=== PATIENT | male | born 1985 | race Two or more races ===

== ENCOUNTER 2017-11-15 23:10 | Emergency (ER) | payer SELFPAY ==
[~2017-11-15] VITALS: Ht 172.7 cm; Wt 97.5 kg
--- NOTE | 2017-11-15 23:20 | NUR ---
PATIENT WALKED INTO ER WITH STEADY GAIT C/O N/V X2 DAYS DUE TO ETOH WITHDRAWAL. PATIENT UPON ARRIVAL A/OX4,SPEAKING WITH CLEAR SPEECH.
--- NOTE | 2017-11-15 23:30 | NUR ---
DR HAYNES INTO EVAL PATIENT
[2017-11-15] MEDS ORDERED: IV NORMAL SALINE 1000 ML BAG IV ONE (23:45)
[2017-11-15] MEDS ORDERED: LORAZEPAM 2 MG/1 ML VIAL IV ONE (23:45)
[2017-11-15] MEDS ORDERED: ONDANSETRON 4 MG/2 ML VIAL IV ONE (23:45)
[2017-11-15] MEDS ORDERED: ONDANSETRON 4 MG/2 ML VIAL ONE (23:46)
[2017-11-15] MEDS ORDERED: LORAZEPAM 2 MG/1 ML VIAL ONE (23:47)
[2017-11-15 23:50] LABS: BASOPHILS # (AUTO) 0.1 K/uL (0.0-8.0); BASOPHILS % (AUTO) 0.5 % (0.0-2.0); EOSINOPHILS % (AUTO) 0.1 % (0.0-7.0); HEMATOCRIT 47.1 % (36.7-47.1); HEMOGLOBIN 16.1 g/dL (12.5-16.3); LYMPHOCYTES # (AUTO) 2.2 K/uL (20.0-40.0); LYMPHOCYTES % (AUTO) 15.4 % (20.5-51.5); MEAN CORPUSCULAR HEMOGLOBIN 29.4 uug (23.8-33.4); MEAN CORPUSCULAR HGB CONC 34 g/dL (32.5-36.3); MEAN CORPUSCULAR VOLUME 86.1 fL (73.0-96.2); MONOCYTES # (AUTO) 0.9 K/uL (2.0-10.0); MONOCYTES % (AUTO) 6.5 % (0.0-11.0); NEUTROPHILS # (AUTO) 11.1 K/uL (1.8-8.9); NEUTROPHILS % (AUTO) 77.5 % (38.5-71.5); PLATELET COUNT (AUTO) 427 K/uL (152-348); RED BLOOD CELL COUNT(AUTO) 5.47 MIL/uL (4.06-5.63); WHITE BLOOD COUNT (AUTO) 14.4 K/uL (3.6-10.2)
[2017-11-16 00:07] LABS: ETHANOL < 3 MG/DL (0-0)
[2017-11-16 00:08] LABS: CREATININE 1.5 mg/dL (0.6-1.3); POTASSIUM 3.7 mmol/L (3.5-5.1)
[2017-11-16 00:13] LABS: BILIRUBIN,DIRECT 0.1 mg/dL (0.0-0.2); BILIRUBIN,TOTAL 0.3 mg/dL (0.2-1.0); TOTAL PROTEIN, SERUM 8.7 g/dL (6.4-8.2)
--- NOTE | 2017-11-16 00:46 | NUR ---
IV removed. Catheter intact and site benign. Pressure and 4x4 gauze applied to site. No bleeding noted.
[2017-11-16 00:50] VITALS: BP 138/88
--- NOTE | 2017-11-16 00:57 | NUR ---
Patient discharged to home in stable conditon. Written and verbal after care instructions given. Patient verbalizes understanding of instructions. WALKED OUT OF ER WITH NO DISTRESS NOTED. PATIENT WAS TOOK UBER HOME
== END 2017-11-16 00:56 | disposition home or self-care (01) ==
LOC: ER 23:13
DX: F10.239 Alcohol dependence with withdrawal, unspecified (principal)
CPT/HCPCS: 36415; 80048; 80076; 83690; 85025; 96361; 96374; 96375; 99284; A4663; G0480; J2060; J2405; J7030

== ENCOUNTER 2017-11-26 06:54 | Emergency (ER) | payer SELFPAY ==
[~2017-11-26] VITALS: Ht 172.7 cm; Wt 95.3 kg
[2017-11-26] MEDS ORDERED: PANTOPRAZOLE SODIUM 40 MG VIAL ONE (07:21)
[2017-11-26] MEDS ORDERED: ONDANSETRON 4 MG/2 ML VIAL ONE (07:21)
[2017-11-26] MEDS ORDERED: LORAZEPAM 2 MG/1 ML VIAL ONE ×2 (07:22→08:45)
[2017-11-26 07:27] LABS: BASOPHILS # (AUTO) 0.1 K/uL (0.0-8.0); BASOPHILS % (AUTO) 1.1 % (0.0-2.0); EOSINOPHILS # (AUTO) 0.2 K/uL (0.0-0.7); EOSINOPHILS % (AUTO) 1.7 % (0.0-7.0); HEMATOCRIT 47.8 % (36.7-47.1); LYMPHOCYTES # (AUTO) 4.2 K/uL (20.0-40.0); LYMPHOCYTES % (AUTO) 39.9 % (20.5-51.5); MEAN CORPUSCULAR HEMOGLOBIN 30.9 uug (23.8-33.4); MEAN CORPUSCULAR HGB CONC 36 g/dL (32.5-36.3); MEAN CORPUSCULAR VOLUME 86.5 fL (73.0-96.2); MONOCYTES # (AUTO) 0.9 K/uL (2.0-10.0); MONOCYTES % (AUTO) 8.1 % (0.0-11.0); NEUTROPHILS # (AUTO) 5.2 K/uL (1.8-8.9); NEUTROPHILS % (AUTO) 49.2 % (38.5-71.5); PLATELET COUNT (AUTO) 369 K/uL (152-348); RED BLOOD CELL COUNT(AUTO) 5.53 MIL/uL (4.06-5.63); WHITE BLOOD COUNT (AUTO) 10.6 K/uL (3.6-10.2)
[2017-11-26] MEDS ORDERED: PANTOPRAZOLE SODIUM 40 MG VIAL IV ONE (07:30)
[2017-11-26] MEDS ORDERED: LORAZEPAM 2 MG/1 ML VIAL IV ONE ×2 (07:30→08:30)
[2017-11-26] MEDS ORDERED: ONDANSETRON 4 MG/2 ML VIAL IV ONE (07:30)
[2017-11-26] MEDS ORDERED: IV NORMAL SALINE 1000 ML BAG IV ONE ×2 (07:30→08:30)
[2017-11-26 07:32] LABS: HEMOGLOBIN 16.5 g/dL (12.5-16.3)
[2017-11-26 07:33] LABS: CREATININE 1.2 mg/dL (0.6-1.3); POTASSIUM 3.2 mmol/L (3.5-5.1)
[2017-11-26 07:40] LABS: BILIRUBIN,DIRECT 0.1 mg/dL (0.0-0.2); BILIRUBIN,TOTAL 0.3 mg/dL (0.2-1.0); TOTAL PROTEIN, SERUM 8.2 g/dL (6.4-8.2)
--- NOTE | 2017-11-26 07:57 | NUR ---
Patient is resting comfortably in bed with eyes closed. No "shakes" or tremors seen. PATIENT IS PAIN FREE AT THIS TIME.
[2017-11-26] MEDS ORDERED: POTASSIUM CHLORIDE 20 MEQ TAB.PRT.SR PO ONE (08:30)
[2017-11-26] MEDS ORDERED: POTASSIUM CHLORIDE 20 MEQ TAB.PRT.SR ONE (08:45)
--- NOTE | 2017-11-26 09:26 | NUR ---
Patient is sleeping comfortably, easily arousable, for discharge per Dr Galeas.
--- NOTE | 2017-11-26 09:31 | NUR ---
IV removed. Catheter intact and site benign. Pressure and 4x4 gauze applied to site. No bleeding noted. Patient discharged to home in stable conditon. Written and verbal after care instructions given to patient. Patient verbalizes understanding of instructions.
== END 2017-11-26 09:31 | disposition home or self-care (01) ==
LOC: ER 06:56
DX: F10.239 Alcohol dependence with withdrawal, unspecified (principal); E87.6 Hypokalemia
CPT/HCPCS: 36415; 83690; 85025; A4663; C9113; G0480; J2060; J2405; J7030

== ENCOUNTER 2017-12-28 07:15 | Emergency (ER) | payer SELFPAY ==
[~2017-12-28] VITALS: Ht 172.7 cm; Wt 97.5 kg
--- NOTE | 2017-12-28 07:55 | NUR ---
DR RON AT THE BEDSIDE FOR MSE.
[2017-12-28] MEDS ORDERED: IV NORMAL SALINE 1000 ML BAG IV ONE (08:00)
[2017-12-28] MEDS ORDERED: LORAZEPAM 2 MG/1 ML VIAL IV ONE ×2 (08:00→09:00)
[2017-12-28] MEDS ORDERED: ONDANSETRON IV *ER 4 MG/2 ML VIAL IV ONE ×2 (08:00→10:30)
[2017-12-28] MEDS ORDERED: ONDANSETRON 4 MG/2 ML VIAL ONE ×2 (08:12→10:19)
[2017-12-28] MEDS ORDERED: LORAZEPAM 2 MG/1 ML VIAL ONE ×2 (08:13→08:57)
[2017-12-28 08:23] LABS: BASOPHILS # (AUTO) 0.1 K/uL (0.0-8.0); BASOPHILS % (AUTO) 0.8 % (0.0-2.0); EOSINOPHILS # (AUTO) 0.1 K/uL (0.0-0.7); EOSINOPHILS % (AUTO) 0.9 % (0.0-7.0); HEMOGLOBIN 14.5 g/dL (12.5-16.3); LYMPHOCYTES # (AUTO) 1.9 K/uL (20.0-40.0); LYMPHOCYTES % (AUTO) 16.9 % (20.5-51.5); MEAN CORPUSCULAR HEMOGLOBIN 29.6 uug (23.8-33.4); MEAN CORPUSCULAR HGB CONC 34 g/dL (32.5-36.3); MEAN CORPUSCULAR VOLUME 87.8 fL (73.0-96.2); MONOCYTES # (AUTO) 0.8 K/uL (2.0-10.0); MONOCYTES % (AUTO) 7.2 % (0.0-11.0); NEUTROPHILS # (AUTO) 8.3 K/uL (1.8-8.9); NEUTROPHILS % (AUTO) 74.2 % (38.5-71.5); PLATELET COUNT (AUTO) 450 K/uL (152-348); RED BLOOD CELL COUNT(AUTO) 4.89 MIL/uL (4.06-5.63); WHITE BLOOD COUNT (AUTO) 11.2 K/uL (3.6-10.2)
[2017-12-28 08:32] LABS: CREATININE 0.9 mg/dL (0.6-1.3); POTASSIUM 3.8 mmol/L (3.5-5.1)
[2017-12-28 08:38] LABS: BILIRUBIN,DIRECT 0.1 mg/dL (0.0-0.2); BILIRUBIN,TOTAL 0.4 mg/dL (0.2-1.0); TOTAL PROTEIN, SERUM 7.4 g/dL (6.4-8.2)
[2017-12-28] MEDS ORDERED: DIAZEPAM 2 MG TABLET PO ONE (10:30)
[2017-12-28] MEDS ORDERED: DIAZEPAM 5 MG TABLET ONE (10:31)
[2017-12-28 10:35] VITALS: BP 142/80
--- NOTE | 2017-12-28 10:36 | NUR ---
IV removed. Catheter intact and site benign. Pressure and 4x4 gauze applied to site. No bleeding noted.
--- NOTE | 2017-12-28 10:37 | NUR ---
Patient discharged to home in stable conditon. Written and verbal after care instructions given. Patient verbalizes understanding of instructions.
== END 2017-12-28 10:37 | disposition home or self-care (01) ==
LOC: ER 07:15
DX: F10.239 Alcohol dependence with withdrawal, unspecified (principal); F10.10 Alcohol abuse, uncomplicated; R11.2 Nausea with vomiting, unspecified
CPT/HCPCS: 36415; 83690; 85025; A4663; J2060; J2405; J7030

== ENCOUNTER 2018-10-24 09:10 | Emergency (ER) | payer SELFPAY ==
[~2018-10-24] VITALS: Ht 172.7 cm; Wt 90.7 kg
[2018-10-24 09:32] LABS: BASOPHILS # (AUTO) 0.1 K/uL (0.0-8.0); BASOPHILS % (AUTO) 0.8 % (0.0-2.0); EOSINOPHILS # (AUTO) 0.1 K/uL (0.0-0.7); EOSINOPHILS % (AUTO) 0.6 % (0.0-7.0); HEMATOCRIT 44.5 % (36.7-47.1); HEMOGLOBIN 15.1 g/dL (12.5-16.3); LYMPHOCYTES # (AUTO) 1.4 K/uL (20.0-40.0); LYMPHOCYTES % (AUTO) 14.7 % (20.5-51.5); MEAN CORPUSCULAR HEMOGLOBIN 30.7 uug (23.8-33.4); MEAN CORPUSCULAR HGB CONC 34 g/dL (32.5-36.3); MEAN CORPUSCULAR VOLUME 90.5 fL (73.0-96.2); MONOCYTES # (AUTO) 0.9 K/uL (2.0-10.0); MONOCYTES % (AUTO) 10.2 % (0.0-11.0); NEUTROPHILS # (AUTO) 6.9 K/uL (1.8-8.9); NEUTROPHILS % (AUTO) 73.7 % (38.5-71.5); PLATELET COUNT (AUTO) 322 K/uL (152-348); RED BLOOD CELL COUNT(AUTO) 4.91 MIL/uL (4.06-5.63); WHITE BLOOD COUNT (AUTO) 9.4 K/uL (3.6-10.2)
[2018-10-24] MEDS ORDERED: ONDANSETRON 4 MG/2 ML VIAL ONE (09:33)
[2018-10-24] MEDS ORDERED: LORAZEPAM 2 MG/1 ML VIAL ONE ×2 (09:33→11:04)
[2018-10-24 09:37] LABS: POTASSIUM 4.4 mmol/L (3.5-5.1)
[2018-10-24] MEDS: ONDANSETRON 4 MG/2 ML VIAL IV ONE (09:42)
[2018-10-24] MEDS: LORAZEPAM 2 MG/1 ML VIAL IV ONE ×2 (09:42→11:04)
[2018-10-24] MEDS: IV NORMAL SALINE 1000 ML BAG IV ONE (09:42)
[2018-10-24 09:43] LABS: BILIRUBIN,DIRECT 0.1 mg/dL (0.0-0.2); BILIRUBIN,TOTAL 0.6 mg/dL (0.2-1.0); TOTAL PROTEIN, SERUM 8.2 g/dL (6.4-8.2)
--- NOTE | 2018-10-24 09:57 | NUR ---
Patient is resting comfortably on gurney with eyes closed, no tremors seen, calm & cooperative when awake.
--- NOTE | 2018-10-24 10:45 | NUR ---
PO challenge started.
--- NOTE | 2018-10-24 10:55 | NUR ---
Patient feels some anxiety & generalized tremors, MD notified. No actual tremors seen in ER.
--- NOTE | 2018-10-24 11:49 | NUR ---
Copies of the diagnostic tests' results provided to patient per patient's request.
--- NOTE | 2018-10-24 11:50 | NUR ---
Patient says that he feels better after the 2nd dose of IV Ativan. Patient's cousin is here to pick the patient up & as his ride. IV removed. Catheter intact and site benign. Pressure and 4x4 gauze applied to site. No bleeding noted. Patient discharged to home in stable conditon. Written and verbal after care instructions given to patient and family. Patient and family verbalized understanding & compliance of instructions. Patient left ER with slow steady gait.
== END 2018-10-24 11:52 | disposition home or self-care (01) ==
LOC: ER 09:10
DX: F10.10 Alcohol abuse, uncomplicated (principal); R11.10 Vomiting, unspecified; Y90.9 Presence of alcohol in blood, level not specified
CPT/HCPCS: 36415; 80048; 80076; 83690; 85025; 96374; 96375; 96376; 99283; J2060 ×2; J2405 ×2; A4663; J7030

== ENCOUNTER 2019-02-10 06:05 | Emergency (ER) | payer MEDICAID ==
[~2019-02-10] VITALS: Ht 172.7 cm; Wt 90.7 kg
--- NOTE | 2019-02-10 06:14 | NUR ---
MD AT BEDSIDE FOR HX AND PHYSICAL
[2019-02-10] MEDS ORDERED: LORAZEPAM 2 MG/1 ML VIAL IM ONE (06:15)
[2019-02-10] MEDS ORDERED: ONDANSETRON ODT 4 MG TAB.RAPDIS SL ONE (06:15)
--- NOTE | 2019-02-10 06:20 | NUR ---
ABLE TO TOLERATE ATLEAST 50ML OF ORANGE JUICE DENIES EMESIS DENIES PAIN
[2019-02-10] MEDS ORDERED: LORAZEPAM 2 MG/1 ML VIAL ONE (06:21)
[2019-02-10] MEDS ORDERED: CHLORDIAZEPOXIDE HCL 25 MG CAPSULE ONE (06:25)
[2019-02-10] MEDS ORDERED: ONDANSETRON ODT 4 MG TAB.RAPDIS ONE (06:26)
[2019-02-10] MEDS ORDERED: CHLORDIAZEPOXIDE HCL 25 MG CAPSULE PO ONE (06:30)
--- NOTE | 2019-02-10 06:30 | NUR ---
Patient discharged to home in stable conditon. Written and verbal after care instructions given. Patient verbalizes understanding of instructions. AMBULATORY WITH STABLE GAIT. ALL BELONGINGS WITH PT INSTRUCTED NOT TO DRIVE. PT VERBALIZED WILL TAKE UBER
[2019-02-10 06:31] VITALS: BP 155/70
== END 2019-02-10 06:32 | disposition home or self-care (01) ==
LOC: ER 06:07
DX: F10.239 Alcohol dependence with withdrawal, unspecified (principal); Y90.9 Presence of alcohol in blood, level not specified
CPT/HCPCS: 82962; 96372; 99283; J2060; A4663; Q0162

== ENCOUNTER 2020-11-05 07:25 | Emergency (ER) | payer MEDICAID, OTHER ==
[~2020-11-05] VITALS: Ht 172.7 cm; Wt 90.7 kg
--- NOTE | 2020-11-05 07:44 | NUR ---
Pt is in room #1b. Dr Mistry evaluated the pt.
[2020-11-05] MEDS ORDERED: KETOROLAC TROMETHAMINE 30 MG INJ IM ONE (08:00)
[2020-11-05] MEDS ORDERED: KETOROLAC TROMETHAMINE 30 MG INJ ONE (08:08)
[2020-11-05 08:29] LABS: *BILIRUBIN,URIN NEGATIVE (NEGATIVE); *BLOOD, URINE NEGATIVE (NEGATIVE); *CLARITY,URINE CLEAR (CLEAR); *COLOR,URINE YELLOW (YELLOW); *KETONES,URINE NEGATIVE (NEGATIVE); *UROBILINOGEN,URINE 0.2 E.U./dl (NORMAL); LEUKOCYTE ESTERASE ,URINE NEGATIVE (NEGATIVE); NITRITE, URINE NEGATIVE (NEGATIVE); PH,URINE 5.5 (5.0-8.0); UGLUCOSE NEGATIVE (NEGATIVE)
[2020-11-05] MEDS ORDERED: IV NORMAL SALINE 1000 ML BAG IV ONE (08:45)
[2020-11-05] MEDS ORDERED: ONDANSETRON 4 MG/2 ML VIAL IV ONE (08:45)
[2020-11-05] MEDS ORDERED: MORPHINE SULFATE 2 MG/1 ML DISP.SYRIN IV ONE (08:45)
[2020-11-05] MEDS ORDERED: IOHEXOL 300MG/ML 100 ML INFUS..BTL ONE (08:51)
[2020-11-05] MEDS ORDERED: IV NORMAL SALINE 250 ML IV ONE (08:51)
[2020-11-05 08:56] LABS: BASOPHILS # (AUTO) 0.1 K/uL (0.0-8.0); BASOPHILS % (AUTO) 0.4 % (0.0-2.0); EOSINOPHILS # (AUTO) 0.4 K/uL (0.0-0.7); EOSINOPHILS % (AUTO) 2.4 % (0.0-7.0); HEMATOCRIT 46.7 % (36.7-47.1); HEMOGLOBIN 15.4 g/dL (12.5-16.3); LYMPHOCYTES # (AUTO) 1.5 K/uL (20.0-40.0); LYMPHOCYTES % (AUTO) 10.5 % (20.5-51.5); MEAN CORPUSCULAR HGB CONC 33 g/dL (32.5-36.3); MEAN CORPUSCULAR VOLUME 90.7 fL (73.0-96.2); MONOCYTES # (AUTO) 0.9 K/uL (2.0-10.0); MONOCYTES % (AUTO) 6.4 % (0.0-11.0); NEUTROPHILS # (AUTO) 11.7 K/uL (1.8-8.9); NEUTROPHILS % (AUTO) 80.3 % (38.5-71.5); PLATELET COUNT (AUTO) 364 K/uL (152-348); RED BLOOD CELL COUNT(AUTO) 5.14 MIL/uL (4.06-5.63); WHITE BLOOD COUNT (AUTO) 14.6 K/uL (3.6-10.2)
[2020-11-05] MEDS ORDERED: ONDANSETRON 4 MG/2 ML VIAL ONE (08:56)
[2020-11-05] MEDS ORDERED: MORPHINE SULFATE 4 MG/1 ML DISP.SYRIN ONE (08:56)
[2020-11-05 08:59] LABS: CREATININE 0.9 mg/dL (0.6-1.3); POTASSIUM 3.6 mmol/L (3.5-5.1)
[2020-11-05] MEDS ORDERED: HYDROMORPHONE 1 MG/1 ML DISP.SYRIN IV ONE (09:45)
[2020-11-05] MEDS ORDERED: HYDROMORPHONE 1 MG/1 ML DISP.SYRIN ONE (09:46)
[2020-11-05] MEDS ORDERED: LIDOCAINE 5% PATCH TD ONE ×2 (10:00→10:07)
[2020-11-05] MEDS ORDERED: LIDO30AD10 TD (10:01)
[2020-11-05] MEDS ORDERED: IBUP-1958 PO (10:01)
[2020-11-05] MEDS ORDERED: OXYC-121 PO ×2 (10:01→10:18)
--- NOTE | 2020-11-05 10:27 | NUR ---
PT WAS D/C'd TO HOME. D/C INSTRUCTIONS GIVEN TO THE PT BY DR MAN. PT VERBALISED FULL UNDERSTANDING.
[2020-11-05 10:30] VITALS: BP 139/71
== END 2020-11-05 10:31 | disposition home or self-care (01) ==
LOC: ER 07:25
DX: S22.32XA Fracture of one rib, left side, initial encounter for closed fracture (principal); X58.XXXA Exposure to other specified factors, initial encounter; Y92.89 Other specified places as the place of occurrence of the external cause; F10.20 Alcohol dependence, uncomplicated; Z86.69 Personal history of other diseases of the nervous system and sense organs
CPT/HCPCS: 36415; 71101; 74177; 80048; 81003; 85025; 96361; 96372; 96374; 96375; 99284; J1170; J1885; J2270; J2405; Q9967; A4663; J7030; J7050

== ENCOUNTER 2024-10-03 06:02 | Emergency (ER) | payer OTHER ==
[~2024-10-03] VITALS: Ht 172.7 cm; Wt 90.7 kg
[~2024-10-03 06:02] MED LIST: IBUP-1958 PO; LIDO30AD10 TD; OXYC-121 PO
[2024-10-03] MEDS ORDERED: AMIT75TA13 PO (06:14)
[2024-10-03] MEDS ORDERED: AMPH20TA3 PO (06:14)
[2024-10-03] MEDS ORDERED: CEphaleXIN 500 MG CAPSULE ONE (06:42)
[2024-10-03] MEDS ORDERED: SULFAMETH/TRIMETH 800/160 MG TABLET ONE (06:44)
[2024-10-03] MEDS: CEphaleXIN 500 MG CAPSULE PO ONE (06:44)
[2024-10-03] MEDS ORDERED: SULF1TAB48 PO (06:45)
[2024-10-03] MEDS ORDERED: ACET1TAB23 PO (06:45)
[2024-10-03] MEDS ORDERED: CEPH500C2 PO (06:45)
[2024-10-03] MEDS: SULFAMETH/TRIMETH 800/160 MG TABLET PO ONE (06:47)
[2024-10-03] MEDS ORDERED: ACETAMINOPHEN/CODEINE 300-30 MG TABLET ONE (06:53)
[2024-10-03 07:08] VITALS: BP 142/71; O2SAT 99
[2024-10-03] MEDS: ACETAMINOPHEN/CODEINE 300-30 MG TABLET PO ONE (07:08)
== END 2024-10-03 07:09 | disposition home or self-care (01) ==
LOC: ER 06:02
DX: L02.01 Cutaneous abscess of face (principal); Z88.7 Allergy status to serum and vaccine; Z86.69 Personal history of other diseases of the nervous system and sense organs; Z86.59 Personal history of other mental and behavioral disorders; Z60.2 Problems related to living alone
CPT/HCPCS: A4606; A4663